=== PATIENT | male | born 1960 | race Caucasian/White ===

== ENCOUNTER 2017-02-13 21:10 | Inpatient (IN) | payer BC ==
[~2017-02-13] VITALS: Ht 175.3 cm; Wt 142.5 kg
[2017-02-13 22:05] LABS: HEMATOCRIT 39.4 % (38.0-50.0); MCH 28.7 PG (29.0-34.0); MCHC 32.2 G/DL (30.0-36.0); MCV 88.9 FL (86-99); MEAN PLAT.VOLUME 9.6 uM^3 (9.0-12.4); PLATELET COUNT 261 K/uL (156-360); RBC DIS.WIDTH-CV 13.5 % (11.8-14.6); RBC DIS.WIDTH-SD 43.6 % (39-53); RED BLOOD COUNT 4.43 M/uL (4.00-5.50); WHITE BLOOD COUNT 10.2 K/uL (4.1-10.2)
[2017-02-13 22:12] LABS: CHLORIDE 109 mEq/L (99-109); POTASSIUM 4.8 mEq/L (3.7-5.4); SODIUM 141 mEq/L (136-147)
[2017-02-13 22:14] LABS: GLUCOSE 94 mg/dL (70-99)
[2017-02-13 22:16] LABS: ANION GAP 10 MEQ/L (2-14)
[2017-02-13 22:17] LABS: D-DIMER ELISA > 4.00 mg/L FEU (< 0.57)
[2017-02-13 22:19] LABS: GFR ESTIMATE (CALCULATED) > 59 mL/min/; UREA NITROGEN (BUN) 20 mg/dL (9-23)
[2017-02-13 22:24] LABS: TROP-I INTERPRETATION NEGATIVE
[2017-02-13] MEDS ORDERED: LO-DOSE ASPIRIN81 M2 PO (23:24)
[2017-02-14] VITALS (7 sets, daily range): BP systolic 105–125; BP diastolic 69–85
[2017-02-14 01:25] LABS: PROTHROMBIN TIME 10.6 (9.2-11.2); PTT 30.6 (25-32)
[2017-02-14 06:45] LABS: HEMATOCRIT 37.3 % (38.0-50.0); MCH 29.5 PG (29.0-34.0); MCHC 32.2 G/DL (30.0-36.0); MCV 91.6 FL (86-99); PLATELET COUNT 215 K/uL (156-360); RBC DIS.WIDTH-CV 13.6 % (11.8-14.6); RBC DIS.WIDTH-SD 44.7 % (39-53); RED BLOOD COUNT 4.07 M/uL (4.00-5.50); WHITE BLOOD COUNT 9.4 K/uL (4.1-10.2)
[2017-02-14 06:57] LABS: INTER. NORMALIZED RATIO 1.1; PROTHROMBIN TIME 10.9 (9.2-11.2); PTT 44.1 (25-32)
[2017-02-14 07:10] LABS: ALKALINE PHOSPHATASE 49 IU/L (3-129); ANION GAP 9 MEQ/L (2-14); CHLORIDE 106 MEQ/L (99-109); GFR ESTIMATE (CALCULATED) > 59 mL/min/; GLUCOSE 102 mg/dL (70-99); POTASSIUM 4.7 MEQ/L (3.7-5.4); SAMPLE HEMOLYSIS CHECK 0; SAMPLE ICTERIC CHECK 0; SAMPLE LIPEMIA CHECK 0; SODIUM 139 MEQ/L (136-147); TOTAL BILIRUBIN 0.4 MG/DL (0.0-1.0); UREA NITROGEN (BUN) 18 mg/dL (9-23)
[2017-02-15 03:41] VITALS: BP 102/58
[2017-02-15 08:26] VITALS: BP 98/54
[2017-02-15 11:15] VITALS: BP 118/85
[2017-02-15 17:22] VITALS: BP 121/59
[2017-02-15 19:02] VITALS: BP 125/79
[2017-02-15 22:56] VITALS: BP 123/65
[2017-02-16 04:46] VITALS: BP 117/77
[2017-02-16 07:17] LABS: MCH 29.5 PG (29.0-34.0); MCHC 32.7 G/DL (30.0-36.0); MCV 90.2 FL (86-99); MEAN PLAT.VOLUME 9.5 uM^3 (9.0-12.4); PLATELET COUNT 222 K/uL (156-360); RBC DIS.WIDTH-CV 13.3 % (11.8-14.6); RBC DIS.WIDTH-SD 43.1 % (39-53); WHITE BLOOD COUNT 7.3 K/uL (4.1-10.2)
[2017-02-16 07:41] LABS: ANION GAP 5 MEQ/L (2-14); CHLORIDE 104 MEQ/L (99-109); GFR ESTIMATE (CALCULATED) > 59 mL/min/; GLUCOSE 93 mg/dL (70-99); POTASSIUM 4.3 MEQ/L (3.7-5.4); SAMPLE HEMOLYSIS CHECK 0; SAMPLE ICTERIC CHECK 0; SAMPLE LIPEMIA CHECK 0; SODIUM 136 MEQ/L (136-147); UREA NITROGEN (BUN) 11 mg/dL (9-23)
[2017-02-16 08:15] VITALS: BP 131/71
[2017-02-16 12:30] VITALS: BP 133/75
[2017-02-16 16:00] VITALS: BP 136/62
[2017-02-16 19:20] VITALS: BP 118/72
[2017-02-16 23:47] VITALS: BP 112/55
[2017-02-17 05:04] VITALS: BP 114/57
[2017-02-17] MEDS ORDERED: XARELTO15 MG PO (06:28)
[2017-02-17] MEDS ORDERED: TRAMADOL HCL50 MG PO (06:29)
[2017-02-17 08:17] VITALS: BP 116/67
== END 2017-02-17 11:23 | disposition home or self-care (01) | DRG 176 ==
LOC: EME 21:10 → EDOF 23:30 → 4EAST 23:30
PROVIDERS: Emergency Medicine; Family Medicine
DX: I26.92 Saddle embolus of pulmonary artery without acute cor pulmonale (principal); I82.442 Acute embolism and thrombosis of left tibial vein; I82.812 Embolism and thrombosis of superficial veins of left lower extremity; Z68.42 Body mass index [BMI] 45.0-49.9, adult; I26.99 Other pulmonary embolism without acute cor pulmonale; E66.01 Morbid (severe) obesity due to excess calories; Z91.128 Patient's intentional underdosing of medication regimen for other reason; Z96.641 Presence of right artificial hip joint; Z96.652 Presence of left artificial knee joint; F17.210 Nicotine dependence, cigarettes, uncomplicated; J43.9 Emphysema, unspecified; M25.562 Pain in left knee; Z90.49 Acquired absence of other specified parts of digestive tract
CPT/HCPCS: 71020; 71275; 80048; 80053; 83880; 84439; 84443; 84484; 85027; 85379; 85610; 85730; 93005; 93970; 99281; 99285

== ENCOUNTER → 2017-06-24 | Outpatient (CLI) | payer BC ==
[~2017-06-24] MED LIST: LO-DOSE ASPIRIN81 M2 PO; TRAMADOL HCL50 MG PO; XARELTO15 MG PO
== END | disposition home or self-care (01) ==
LOC: CDC 14:20
DX: Z01.810 Encounter for preprocedural cardiovascular examination (principal)
CPT/HCPCS: 93000

== ENCOUNTER 2017-06-29 14:06 | Day surgery (SDC) | payer BC ==
[~2017-06-29] VITALS: Ht 175.3 cm; Wt 154.0 kg
[~2017-06-29 14:06] MED LIST changes: +TYLENOL EXTRA500 MG PO; +XARELTO20 MG PO
[2017-06-29 14:52] VITALS: BP 141/79
[2017-06-29] MEDS ORDERED: CHANTIX0.5 MG PO (14:52)
[2017-06-29 16:50] VITALS: BP 139/75
[2017-06-29 18:00] VITALS: BP 134/75
== END 2017-06-29 18:29 | disposition home or self-care (01) ==
LOC: SDC
PROC: 01N50ZZ Release Median Nerve, Open Approach (ICD-10-PCS; principal; 2017-06-29)
DX: G56.02 Carpal tunnel syndrome, left upper limb (principal); E66.9 Obesity, unspecified; Z68.43 Body mass index [BMI] 50.0-59.9, adult; Z79.01 Long term (current) use of anticoagulants; Z86.718 Personal history of other venous thrombosis and embolism; Z86.711 Personal history of pulmonary embolism; Z96.641 Presence of right artificial hip joint; Z83.3 Family history of diabetes mellitus; Z80.9 Family history of malignant neoplasm, unspecified
CPT/HCPCS: J2250; S0020